=== PATIENT | female | born 1940 | race Caucasian/White ===

== ENCOUNTER 2017-04-28 21:50 | Emergency (ER) | payer OTHER ==
[~2017-04-28] VITALS: Ht 144.8 cm; Wt 57.0 kg
[~2017-04-28 21:50] MED LIST: CHOL100011 PO; CHOL100015 PO; DICL100G19 TP; ENOX60SY4 SQ; ERGO500017 PO; FLUTICASONE NAS; FUROSEMIDE PO; HYDR-3307 PO; IPRA4AER INH; LEVO100T5 PO; LEVO112T2 PO; LEVO88TA2 PO; LISI1TAB5 PO; OMEP-110 PO; POTA10TA11 PEG; POTASSIUM PEG; TORS20TA PO; WARF1TAB9 PO; WARF5TAB PO; WARF7.5T PO; WARF7.5T6 PO
[2017-04-28] MEDS ORDERED: ONDANSETRON ODT 4 MG ONE (23:46)
[2017-04-29] MEDS ORDERED: ONDANSETRON ODT 4 MG PO ONE
[2017-04-29] MEDS ORDERED: MORPHINE SULFATE 4 MG/ML, 1ML IVPush PRN (00:30)
[2017-04-29] MEDS ORDERED: SODIUM CHLORIDE FLUSH 10ML SYR IVF ONE (00:30)
[2017-04-29] MEDS ORDERED: ONDANSETRON 2MG/ML, 2ML IVPush ONE (00:30)
[2017-04-29] MEDS ORDERED: SODIUM CHLORIDE 0.9% 1,000ML IVBOLUS ONE (00:30)
[2017-04-29] MEDS ORDERED: HYDROcodone/APAP 5/325 TABLET ONE (00:42)
[2017-04-29 00:43] LABS: MEAN CORPUSCULAR HEMOGLOBIN 29.9 pg (27.0-34.8); MEAN CORPUSCULAR HGB CONC 32.5 g/dL (32.4-35.8); MEAN CORPUSCULAR VOLUME 92.1 fL (80-100); MEAN PLATELET VOLUME 8.6 fL (7.4-10.4); PLATELET COUNT 205 x10^3/uL (130-400); RED BLOOD COUNT 5.28 x10^6/uL (3.82-5.3); RED CELL DISTRIBUTION WIDTH 14.2 % (9.6-15.2)
[2017-04-29 00:53] LABS: ALANINE AMINOTRANSFERASE 43 U/L (12-78); ALBUMIN 3.4 g/dL (3.4-5.0); ANION GAP 8 mmol/L (5-15); CALCIUM 9.1 mg/dL (8.5-10.1); CHLORIDE 106 mmol/L (98-107); CREATININE 1.05 mg/dL (0.55-1.02)
[2017-04-29 00:58] LABS: ALKALINE PHOSPHATASE 129 U/L (45-117); BILIRUBIN,TOTAL 0.7 mg/dL (0.2-1.0); TROPONIN I < 0.015 ng/mL (0.000-0.045)
[2017-04-29] MEDS ORDERED: HYDROcodone/APAP 5/325 TABLET PO ONE (01:00)
[2017-04-29 01:18] LABS: BASOPHILS % (AUTO) 0 % (0-1); EOSINOPHILS % (AUTO) 0 % (1-7); LYMPHOCYTES # (AUTO) 0.29 x10^3/uL (1-3.4); LYMPHOCYTES % (AUTO) 2 % (22-44); MD SCAN; MONOCYTES # (AUTO) 0.15 x10^3/uL (0.2-0.8); MONOCYTES % (AUTO) 1 % (2-9); NEUTROPHILS # (AUTO) 14.02 x10^3/uL (1.8-6.8); NEUTROPHILS % (AUTO) 97 % (42-75)
[2017-04-29] MEDS ORDERED: OMNIPAQUE 350 MG/ML, 100ML BOTTLE ONE ×2 (01:32→01:33)
[2017-04-29 01:46] LABS: CULTURE INDICATED? YES; MICROSCOPIC INDICATED
[2017-04-29 03:11] VITALS: BP 136/52
== END 2017-04-29 03:18 | disposition home or self-care (01) ==
LOC: ED 04-29 03:12
DX: K52.9 Noninfective gastroenteritis and colitis, unspecified (principal); G43.A0 Cyclical vomiting, in migraine, not intractable; E78.5 Hyperlipidemia, unspecified; F17.200 Nicotine dependence, unspecified, uncomplicated; I10 Essential (primary) hypertension; J44.9 Chronic obstructive pulmonary disease, unspecified; Z86.718 Personal history of other venous thrombosis and embolism
CPT/HCPCS: 36415; 74177; 80053; 81001; 83690; 84484; 85025; 87086; 93005; 96360; 96361; 99285; J7030; Q0162; Q9967

== ENCOUNTER 2017-05-10 10:30 | Inpatient (IN) | payer OTHER ==
[~2017-05-10] VITALS: Ht 146.1 cm; Wt 62.8 kg
[2017-05-10] MEDS ORDERED: SODIUM CHLORIDE FLUSH 10ML SYR IVF ONE (11:00)
[2017-05-10 11:24] LABS: BASOPHILS # (AUTO) 0.03 x10^3/uL (0-0.1); BASOPHILS % (AUTO) 0 % (0-1); EOSINOPHILS # (AUTO) 0.13 x10^3/uL (0-0.4); EOSINOPHILS % (AUTO) 1 % (1-7); LYMPHOCYTES # (AUTO) 1.22 x10^3/uL (1-3.4); LYMPHOCYTES % (AUTO) 11 % (22-44); MD NO; MEAN CORPUSCULAR HEMOGLOBIN 29.5 pg (27.0-34.8); MEAN CORPUSCULAR HGB CONC 32.3 g/dL (32.4-35.8); MEAN CORPUSCULAR VOLUME 91.5 fL (80-100); MEAN PLATELET VOLUME 7.8 fL (7.4-10.4); MONOCYTES # (AUTO) 0.84 x10^3/uL (0.2-0.8); MONOCYTES % (AUTO) 8 % (2-9); NEUTROPHILS # (AUTO) 9.06 x10^3/uL (1.8-6.8); NEUTROPHILS % (AUTO) 80 % (42-75); PLATELET COUNT 258 x10^3/uL (130-400); RED BLOOD COUNT 4.32 x10^6/uL (3.82-5.3); RED CELL DISTRIBUTION WIDTH 14.7 % (9.6-15.2)
[2017-05-10 11:40] LABS: TROPONIN I 0.017 ng/mL (0.000-0.045)
[2017-05-10 11:49] LABS: ALANINE AMINOTRANSFERASE 18 U/L (12-78); ALKALINE PHOSPHATASE 99 U/L (45-117); BILIRUBIN,TOTAL 0.7 mg/dL (0.2-1.0); CREATININE 0.77 mg/dL (0.55-1.02); THYROID STIMULATING HORMONE 0.578 mIU/L (0.358-3.740); TOTAL PROTEIN 6.3 g/dL (6.4-8.2)
[2017-05-10 11:52] LABS: ALBUMIN 2.3 g/dL (3.4-5.0); ANION GAP 2 mmol/L (5-15); CALCIUM 7.9 mg/dL (8.5-10.1); CHLORIDE 108 mmol/L (98-107)
[2017-05-10 11:58] LABS: INTERNATIONAL NORMALIZED RATIO > 12.00 (0.93-1.1); PROTHROMBIN TIME 148.7 Seconds (9.6-11.5)
[2017-05-10] MEDS ORDERED: PHYTONADIONE 10 MG/ML, 1ML ONE (12:26)
[2017-05-10] MEDS ORDERED: SODIUM CHLORIDE FLUSH 10ML SYR IVF PRN (12:30)
[2017-05-10] MEDS ORDERED: PHYTONADIONE 10 MG/ML, 1ML SQ ONE (12:30)
[2017-05-10] MEDS ORDERED: ATOR20TA PO (12:33)
[2017-05-10] MEDS ORDERED: NS + 20MEQ KCL 1,000 ML IV SCH (13:25)
[2017-05-10] MEDS ORDERED: DOCUSATE 100 MG CAPSULE PO PRN (13:30)
[2017-05-10] MEDS ORDERED: ONDANSETRON 2MG/ML, 2ML IVPush PRN (13:30)
[2017-05-10] MEDS ORDERED: POLYETHYLENE GLYCOL 17 GM PACKET PO PRN (13:30)
[2017-05-10] MEDS ORDERED: GUAIFENESIN/DM 200-20MG, 10ML UDC PO PRN (13:30)
[2017-05-10] MEDS ORDERED: ACETAMINOPHEN 325 MG TABLET PO PRN (13:30)
[2017-05-10] MEDS ORDERED: morphine SULFATE 10 MG/ML, 1ML IVPush PRN (13:30)
[2017-05-10 14:25] VITALS: BP 142/70
[2017-05-10 14:40] VITALS: BP 155/79
[2017-05-10] MEDS ORDERED: NS + 20MEQ KCL 1,000 ML IV ONE (15:09)
[2017-05-10 15:23] VITALS: BP 143/61
[2017-05-10] MEDS ORDERED: MORPHINE SULFATE 4 MG/ML, 1ML ONE ×2 (17:11→20:26)
[2017-05-10] MEDS ORDERED: HYDROcodone/APAP 5/325 TABLET ONE (17:16)
[2017-05-10] MEDS: HYDROcodone/APAP 5/325 TABLET PO PRN (17:17)
[2017-05-10] MEDS: AMOXICILLIN/CLAV 875-125MG TABLET PO SCH ×2 (17:53→21:24)
[2017-05-10] MEDS: NICOTINE 7 MG/24 HR PATCH.TD24 TD SCH (17:56)
[2017-05-10 22:16] VITALS: BP 158/97
[2017-05-11] MEDS: HYDROcodone/APAP 5/325 TABLET PO PRN ×4 (00:07→21:54)
[2017-05-11] MEDS: ALBUTEROL/IPRATROPIUM 2.5MG/0.5MG, 3 ML NPPB SCH ×2 (01:25→03:34)
[2017-05-11 02:32] VITALS: BP 129/70
[2017-05-11 05:42] LABS: BASOPHILS # (AUTO) 0.04 x10^3/uL (0-0.1); BASOPHILS % (AUTO) 0 % (0-1); EOSINOPHILS # (AUTO) 0.16 x10^3/uL (0-0.4); EOSINOPHILS % (AUTO) 2 % (1-7); LYMPHOCYTES # (AUTO) 1.52 x10^3/uL (1-3.4); LYMPHOCYTES % (AUTO) 15 % (22-44); MD NO; MEAN CORPUSCULAR HEMOGLOBIN 29.9 pg (27.0-34.8); MEAN CORPUSCULAR HGB CONC 32.5 g/dL (32.4-35.8); MEAN PLATELET VOLUME 7.6 fL (7.4-10.4); MONOCYTES # (AUTO) 0.75 x10^3/uL (0.2-0.8); MONOCYTES % (AUTO) 7 % (2-9); NEUTROPHILS # (AUTO) 7.68 x10^3/uL (1.8-6.8); NEUTROPHILS % (AUTO) 76 % (42-75); PLATELET COUNT 228 x10^3/uL (130-400); RED BLOOD COUNT 3.89 x10^6/uL (3.82-5.3); RED CELL DISTRIBUTION WIDTH 14.6 % (9.6-15.2)
[2017-05-11 05:50] LABS: INTERNATIONAL NORMALIZED RATIO 2.37 (0.93-1.1); PROTHROMBIN TIME 24.2 Seconds (9.6-11.5)
[2017-05-11 05:58] LABS: CHLORIDE 110 mmol/L (98-107)
[2017-05-11 06:14] LABS: ANION GAP 4 mmol/L (5-15); CALCIUM 8.4 mg/dL (8.5-10.1); CREATININE 0.63 mg/dL (0.55-1.02)
[2017-05-11 07:24] VITALS: BP 145/75
[2017-05-11] MEDS ORDERED: ATORVASTATIN 20 MG TABLET PO SCH (09:00)
[2017-05-11] MEDS: PANTOPROZOLE 40MG TABLET PO SCH (09:00)
[2017-05-11] MEDS: SENNA/DOCUSATE TABLET PO SCH (09:00)
[2017-05-11] MEDS: LEVOTHYROXINE 100 MCG TABLET PO SCH (09:01)
[2017-05-11] MEDS: AMOXICILLIN/CLAV 875-125MG TABLET PO SCH ×2 (09:01→21:54)
[2017-05-11] MEDS: ALBUTEROL/IPRATROPIUM 2.5MG/0.5MG, 3 ML NPPB PRN ×2 (11:56→20:35)
[2017-05-11 12:22] VITALS: BP 122/69
[2017-05-11] MEDS: NICOTINE 7 MG/24 HR PATCH.TD24 TD SCH (16:11)
[2017-05-11 20:16] VITALS: BP 150/64
[2017-05-12 02:51] VITALS: BP 156/78
[2017-05-12] MEDS: HYDROcodone/APAP 5/325 TABLET PO PRN (05:55)
[2017-05-12] MEDS: LEVOTHYROXINE 100 MCG TABLET PO SCH (05:56)
[2017-05-12 05:58] LABS: BASOPHILS # (AUTO) 0.02 x10^3/uL (0-0.1); BASOPHILS % (AUTO) 0 % (0-1); EOSINOPHILS # (AUTO) 0.15 x10^3/uL (0-0.4); EOSINOPHILS % (AUTO) 1 % (1-7); LYMPHOCYTES % (AUTO) 11 % (22-44); MD NO; MEAN CORPUSCULAR HEMOGLOBIN 29.6 pg (27.0-34.8); MEAN CORPUSCULAR HGB CONC 32.4 g/dL (32.4-35.8); MEAN CORPUSCULAR VOLUME 91.4 fL (80-100); MEAN PLATELET VOLUME 7.5 fL (7.4-10.4); MONOCYTES # (AUTO) 0.83 x10^3/uL (0.2-0.8); MONOCYTES % (AUTO) 7 % (2-9); NEUTROPHILS # (AUTO) 9.92 x10^3/uL (1.8-6.8); NEUTROPHILS % (AUTO) 81 % (42-75); PLATELET COUNT 218 x10^3/uL (130-400); RED BLOOD COUNT 3.91 x10^6/uL (3.82-5.3); RED CELL DISTRIBUTION WIDTH 14.6 % (9.6-15.2)
[2017-05-12 06:17] LABS: INTERNATIONAL NORMALIZED RATIO 1.39 (0.93-1.1); PROTHROMBIN TIME 14.4 Seconds (9.6-11.5)
[2017-05-12 07:19] VITALS: BP 154/83
[2017-05-12] MEDS: PANTOPROZOLE 40MG TABLET PO SCH (08:28)
[2017-05-12] MEDS: AMOXICILLIN/CLAV 875-125MG TABLET PO SCH ×2 (08:28→21:37)
[2017-05-12] MEDS: SENNA/DOCUSATE TABLET PO SCH (08:29)
[2017-05-12] MEDS: ALBUTEROL/IPRATROPIUM 2.5MG/0.5MG, 3 ML NPPB PRN ×2 (11:35→22:56)
[2017-05-12] MEDS: HYDROcodone/APAP 10/325 MG TABLET PO PRN ×2 (11:47→21:37)
[2017-05-12] MEDS ORDERED: GUAIFENESIN 200 MG TABLET PO PRN (12:00)
[2017-05-12 15:29] VITALS: BP 131/66
[2017-05-12] MEDS: NICOTINE 7 MG/24 HR PATCH.TD24 TD SCH (16:25)
[2017-05-12] MEDS ORDERED: RIVAROXABAN 10 MG TABLET PO SCH (17:00)
[2017-05-12 20:00] VITALS: BP 163/79
[2017-05-12] MEDS ORDERED: ATORVASTATIN 20 MG TABLET PO SCH (21:00)
[2017-05-13 02:00] VITALS: BP 131/71
[2017-05-13] MEDS: LEVOTHYROXINE 100 MCG TABLET PO SCH (06:00)
[2017-05-13] MEDS: AMOXICILLIN/CLAV 875-125MG TABLET PO SCH (08:09)
[2017-05-13] MEDS: PANTOPROZOLE 40MG TABLET PO SCH (08:09)
[2017-05-13] MEDS: SENNA/DOCUSATE TABLET PO SCH (08:10)
[2017-05-13 08:30] VITALS: BP 154/79
[2017-05-13] MEDS ORDERED: RIVA10TA PO (10:14)
[2017-05-13] MEDS ORDERED: GUAI5SYR PO (10:14)
[2017-05-13] MEDS ORDERED: ALBU8.5H8 INH (10:14)
[2017-05-13] MEDS ORDERED: AMOX1TAB12 PO (10:14)
== END 2017-05-13 12:20 | disposition home or self-care (01) | DRG 377 ==
LOC: ED 12:28 → EDIP 12:29 → SUATTDRO 13:05 → ED 13:23 → 4EST 21:54 → DCLOUNGE 05-13 12:03
PROVIDERS: ADMIT Family Medicine; ATTEND Family Medicine
PROC: 30233L1 Transfusion of Nonautologous Fresh Plasma into Peripheral Vein, Percutaneous Approach (ICD-10-PCS; principal; 2017-05-10)
PROC: 30233K1 Transfusion of Nonautologous Frozen Plasma into Peripheral Vein, Percutaneous Approach (ICD-10-PCS; 2017-05-10)
DX: K92.0 Hematemesis (principal); J96.00 Acute respiratory failure, unspecified whether with hypoxia or hypercapnia; D68.4 Acquired coagulation factor deficiency; E44.0 Moderate protein-calorie malnutrition; D68.69 Other thrombophilia; R04.2 Hemoptysis; E03.9 Hypothyroidism, unspecified; E78.5 Hyperlipidemia, unspecified; E87.6 Hypokalemia; I10 Essential (primary) hypertension; J44.9 Chronic obstructive pulmonary disease, unspecified; R04.0 Epistaxis; F17.200 Nicotine dependence, unspecified, uncomplicated; T45.515A Adverse effect of anticoagulants, initial encounter; Z83.3 Family history of diabetes mellitus; Z86.718 Personal history of other venous thrombosis and embolism; Z68.29 Body mass index [BMI] 29.0-29.9, adult; Z79.01 Long term (current) use of anticoagulants; Z88.2 Allergy status to sulfonamides; Z88.8 Allergy status to other drugs, medicaments and biological substances; K92.1 Melena
CPT/HCPCS: 36415; 36430; 71045; 80048; 80053; 83735; 83880; 84443; 84484; 85025; 85610; 86850; 86900; 87070; 87205; 93005; 94640; 96372; J3430; J3480; J7620; P9017

== ENCOUNTER 2017-11-20 15:56 | Emergency (ER) | payer OTHER ==
[~2017-11-20] VITALS: Ht 147.3 cm; Wt 61.8 kg
[~2017-11-20 15:56] MED LIST changes: +ALBU8.5H8 INH; +AMOX1TAB12 PO; +ATOR20TA PO; +DICL100G19 TD; +FURO-93 PO; +GUAI5SYR PO; +RIVA10TA PO; +UMEC1DIS INH; +WARF7.5T46 PO; -WARF7.5T6 PO; +[UNRECOGNIZED DRUG - CODE] INH
[2017-11-20 16:22] VITALS: BP 111/54
[2017-11-20] MEDS ORDERED: LIDOCAINE-MPF 1%, 5ML ONE ×2 (16:55)
[2017-11-20] MEDS ORDERED: DIPH,PERTUSS(ACELL),TET VAC/PF 0.5 ML IM-VACC ONE ×3 (17:00→17:48)
[2017-11-20] MEDS ORDERED: LIDOCAINE-MPF 1%, 5ML INFIL ONE (17:00)
== END 2017-11-20 18:17 | disposition home or self-care (01) ==
LOC: ED 16:30
DX: S81.811A Laceration without foreign body, right lower leg, initial encounter (principal); I11.0 Hypertensive heart disease with heart failure; I50.9 Heart failure, unspecified; J44.9 Chronic obstructive pulmonary disease, unspecified; E78.5 Hyperlipidemia, unspecified; M19.90 Unspecified osteoarthritis, unspecified site; Z86.718 Personal history of other venous thrombosis and embolism; Z87.891 Personal history of nicotine dependence; W23.0XXA Caught, crushed, jammed, or pinched between moving objects, initial encounter; Y93.89 Activity, other specified; Y99.8 Other external cause status; Y92.89 Other specified places as the place of occurrence of the external cause
CPT/HCPCS: 12034; 90715; 99284